=== PATIENT | male | born 1960 | race Caucasian/White ===

== ENCOUNTER 2019-03-13 15:38 | Emergency (ER) | payer MEDICAID ==
[~2019-03-13] VITALS: Ht 165.1 cm; Wt 79.0 kg
[2019-03-13 19:06] LABS: CHLORIDE 104 mEq/L (98-107)
[2019-03-13] MEDS ORDERED: IOHEXOL-300 100 ML BOTTLE ONE (20:41)
[2019-03-13] MEDS ORDERED: KETOROLAC 30MG/ML VIAL IV ONE (21:00)
[2019-03-13] MEDS ORDERED: SODIUM CHLORIDE 0.9% 1,000 ML IV ONE (21:00)
[2019-03-13] MEDS ORDERED: AMOXICILLIN/POTASSIUM CLAVULANATE 875/125MG TAB PO ONE (21:45)
[2019-03-13 22:02] VITALS: BP 135/89
== END 2019-03-13 22:04 | disposition home or self-care (01) ==
LOC: ER 15:38
DX: K04.7 Periapical abscess without sinus (principal)
CPT/HCPCS: 36415; 70487; 80048; 96374; 99284; J1885; J7030; Q9967

== ENCOUNTER 2019-04-15 13:22 | Emergency (ER) | payer MEDICAID ==
[~2019-04-15] VITALS: Ht 162.6 cm; Wt 79.0 kg
[2019-04-15] MEDS ORDERED: KETOROLAC 60MG/2ML VIAL IM STA (16:20)
[2019-04-15] MEDS ORDERED: CEFTRIAXONE SODIUM 1 G/VIAL IM ONE (16:30)
[2019-04-15] MEDS ORDERED: LIDOCAINE HCL/PF 1% 10 MG/ML 5ML VIAL IJ ONE (16:30)
[2019-04-15] MEDS ORDERED: CLONIDINE 0.1MG TABLET PO NR (17:15)
[2019-04-15 18:39] VITALS: BP 143/89
== END 2019-04-15 19:00 | disposition short-term general hospital (02) ==
LOC: ER 13:22
DX: K04.7 Periapical abscess without sinus (principal); I10 Essential (primary) hypertension
CPT/HCPCS: 96372; 99285; J0696; J3490; Z7610

== ENCOUNTER 2019-10-13 16:21 | Emergency (ER) | payer MEDICAID ==
[~2019-10-13] VITALS: Ht 157.5 cm; Wt 85.0 kg
[2019-10-13 16:34] VITALS: BP 153/96
[2019-10-13] MEDS ORDERED: TOPUD PO (16:38)
[2019-10-13] MEDS ORDERED: IBUP-2028 PO (16:38)
== END 2019-10-13 18:05 | disposition home or self-care (01) ==
LOC: ER 16:21
DX: K04.7 Periapical abscess without sinus (principal); Z87.891 Personal history of nicotine dependence
CPT/HCPCS: 99282

== ENCOUNTER 2024-01-26 12:56 | Emergency (ER) | payer MEDICAID, OTHER ==
[~2024-01-26] VITALS: Ht 165.1 cm; Wt 80.7 kg
[~2024-01-26 12:56] MED LIST: IBUP-2028 PO; TOPUD PO
[2024-01-26 13:44] VITALS: BP 158/94; PULSE 94; RESP 16; TEMP 98.2; O2SAT 98
[2024-01-26] MEDS ORDERED: IBUP-2030 MT (15:08)
[2024-01-26] MEDS ORDERED: AMOX1TAB16 MT (15:08)
== END 2024-01-26 15:39 | disposition home or self-care (01) ==
LOC: ER 12:56
DX: M79.89 Other specified soft tissue disorders (principal); H60.12 Cellulitis of left external ear
CPT/HCPCS: 73110; 73130; 99284